=== PATIENT | female | born 1975 | race African-American/Black ===

== ENCOUNTER 2016-05-21 09:34 | Emergency (ER) | payer BC, OTHER ==
[2016-05-21 09:52] VITALS: BP 135/73; PULSE 70; TEMP 98.1; BMI 52.5
[2016-05-21] MEDS ORDERED: IBUPROFEN 600 MG TABLET (FP) PO ONE ×2 (10:34→10:36)
--- NOTE | 2016-05-21 10:42 | PDOC ---
History of Present Illness - General Chief Complaint: Edema Stated Complaint: SWOLLEN LT ANKLE Time Seen by Provider: 05/21/16 10:23 History Source: Patient Exam Limitations: No Limitations - History of Present Illness Initial Comments: 05/21/16 10:39 41 yr female states she has pain to her left lower leg after returning to work yesterday from a previous injury to the right leg. Pt admits to being mostly sedentary at home during recovery. Pt denies sob no chest pain. Pt has no medical history or allergies. Severity: Yes: mild Lower Extremity Pain Location: left: leg (calf) Lower Ext. Injury Location - Specific Injury Location Legs: left: pain, swelling Past History - Past Medical History Allergies/Adverse Reactions: Allergies Allergy/AdvReac Type Severity Reaction Status Date / Time No Known Drug Allergies Allergy Verified 05/21/16 09:52 Home Medications: Ambulatory Orders NK [No Known Home Medication] 01/03/15 Anemia: No Asthma: No Cancer: No Cardiac Disorders: Yes (MURMUR CHILD) CVA: No COPD: No (BROCHITIS) CHF: No Dementia: No Diabetes: No GI Disorders: No Disorders: No HTN: No Hypercholesterolemia: No Liver Disease: No Seizures: No Thyroid Disease: No Other medical history: obesity - Surgical History Abdominal Surgery: No Appendectomy: No Cardiac Surgery: No Cholecystectomy: No Lung Surgery: No Neurologic Surgery: No Orthopedic Surgery: Yes (CARPEL TUNNEL) - Psycho/Social/Smoking Cessation Hx Anxiety: No Suicidal Ideation: No Smoking History: Never smoked Have you smoked in the past 12 months: No Hx Alcohol Use: Yes (SOCIAL) Drug/Substance Use Hx: No Substance Use Type: None Hx Substance Use Treatment: No Review of Systems - Review of Systems Able to Perform ROS?: Yes Is the patient limited Honduran proficient: No Constitutional: No: Symptoms Reported HEENTM: No: Symptoms Reported Respiratory: No: Symptoms reported Cardiac (ROS): No: Symptoms Reported ABD/GI: No: Symptoms Reported : No: Symptoms Reported Musculoskeletal: Yes: See HPI *Physical Exam - Vital Signs Last Vital Signs Temp Pulse Resp BP Pulse Ox 98.1 F 70 20 135/73 100 05/21/16 09:49 05/21/16 09:49 05/21/16 09:49 05/21/16 09:49 05/21/16 09:49 - Physical Exam General Appearance: Yes: Nourished, Appropriately Dressed, Obese HEENT: positive: EOMI, HAILE Neck: negative: Tender Respiratory/Chest: positive: Lungs Clear, Normal Breath Sounds Cardiovascular: positive: Regular Rhythm, Regular Rate Gastrointestinal/Abdominal: positive: Normal Bowel Sounds, Soft Musculoskeletal: positive: Normal Inspection Extremity: positive: Normal Capillary Refill, Swelling (minimal swelling left lower leg to ankle non pitting , no bony tenderness), Calf Tenderness Integumentary: positive: Normal Color, Dry, Warm Neurologic: positive: Fully Oriented, Alert, Normal Mood/Affect, Normal Response , Motor Strength 07/04 ED Treatment Course - RADIOLOGY Radiology Studies Ordered: Category Date Time Status DUPLEX VASCUL US-1 LEG [US] Stat Ultrasound 05/21/16 10:34 Ordered - Medications Given in the ED: ED Medications Discontinued Medications Generic Name Dose Route Start Last Admin Trade Name Sky PRN Reason Stop Dose Admin Ibuprofen 600 mg 05/21/16 10:34 05/21/16 10:37 Motrin - PO 05/21/16 10:35 600 mg ONCE ONE Administration Medical Decision Making - Medical Decision Making 05/21/16 10:41 cc: left lower leg pain and swelling started yesterday 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 c/o swelling and tightness to the left leg no trauma no bony tenderness will r/o DVT left lower leg 05/21/16 11:52 *DC/Admit/Observation/Transfer Diagnosis at time of Disposition: Leg pain Qualifiers: Laterality: left Qualified Code(s): M79.605 - Pain in left leg - Discharge Dispostion Disposition: HOME Condition at time of disposition: Good - Patient Instructions Additional Instructions: elevate your leg at the end of the day can help with pain or swelling take motrin (advil, ibuprofen over the counter) for pain use the jennifer wrap while awake remove to sleep and bathe follow with your orthopedist or your primary care doctor for follow up
== END 2016-05-21 12:10 | disposition home or self-care (01) ==
LOC: JERFT 09:34
DX: M79.605 Pain in left leg (principal)
CPT/HCPCS: 93971-TC; 99281-25

== ENCOUNTER 2019-11-11 17:18 | Emergency (ER) | payer BC ==
[2019-11-11 17:35] VITALS: BMI 52.4
--- NOTE | 2019-11-11 20:25 | PDOC ---
History of Present Illness - General Chief Complaint: Weakness Stated Complaint: Weakness, incontinence, sent by PMD Time Seen by Provider: 11/11/19 19:21 History Source: Patient Exam Limitations: No Limitations - History of Present Illness Initial Comments: 11/11/19 20:18 CHIEF COMPLAINT: Lower back pain HISTORY OF PRESENT ILLNESS: 44-year-old female with multiple orthopedic history presents emergency department for evaluation of back pain radiating down both legs with frequent twitching and falls over the past 2 weeks. Patient reports he is recently been experiencing urinary incontinence and pins and needle sensation to her rectum. She denies any foot drop history of IV drug use or history of cancer. Patient was seen and evaluated at [facility] where her case was discussed with a neurologist and a recommendation was given to come to the emergency department for immediate in-person evaluation by a neurologist. REVIEW OF SYSTEMS: GENERAL: Afebrile, denies any weakness RESPIRATORY: No cough, wheezing, or hemoptysis. CARDIAC: No chest pain or shortness of breath MUSCULOSKELETAL: Pain to generalized lower back. No point tenderness. Pain worse on left compared to right. SKIN : No erythema, no bruising, no deformity. GI/: See HPI RECTAL: Denies any difficulty this A.m. NEUROLOGICAL: Denies any numbness or tingling. No neurosensory deficits. PHYSICAL EXAM: GENERAL: The patient is awake, alert, and fully oriented, in no acute distress. RESPIRATORY: Lungs clear bilaterally, no rhonchi wheezes or crackles CARDIAC: S1-S2 audible, no murmur rub or gallop MUSCULOSKELETAL: Pain to generalized lower back, nonradiating, no tingling or sensory deficit. Less than 2 second cap refill, +2 pedal pulses. No spinal point tenderness. No deficits to sensation or strength. Hyperreflexive in the left Achilles. Otherwise reflexes were unremarkable GI/: Abdomen soft, nontender, nondistended. No rebound tenderness. No masses palpable. RECTAL: Decreased rectal tone noted. Decreased sensation present to the right side of the rectum. Guaiac negative. SKIN: Warm, Dry, normal turgor, no erythema, no edema no bruising. 11/11/19 21:21 11/11/19 21:24 Past History - Medical History Allergies/Adverse Reactions: Allergies Allergy/AdvReac Type Severity Reaction Status Date / Time No Known Drug Allergies Allergy Verified 11/12/19 08:44 Home Medications: Ambulatory Orders Lidocaine 5% Patch [Lidoderm Patch -] 1 patch TP DAILY #30 patch 11/12/19 Methocarbamol [Robaxin -] 500 mg PO TID #21 tablet 11/12/19 Docusate Sodium [Colace -] 100 mg PO BID #14 capsule 11/17/19 Oxycodone HCl/Acetaminophen [Percocet 5-325 mg Tablet] 1 - 2 tab PO Q4H PRN #30 tablet MDD 8 11/17/19 Anemia: No Asthma: No Cancer: No Cardiac Disorders: Yes (MURMUR CHILD) CVA: No COPD: No (BROCHITIS) CHF: No Dementia: No Diabetes: No GI Disorders: No Disorders: No HTN: No Hypercholesterolemia: No Liver Disease: No Seizures: No Thyroid Disease: No Other medical history: obesity - Surgical History Abdominal Surgery: No Appendectomy: No Cardiac Surgery: No Cholecystectomy: No Lung Surgery: No Neurologic Surgery: No Orthopedic Surgery: Yes (CARPEL TUNNEL) - Reproductive History Is Patient Now?: No - Psycho-Social/Smoking History Smoking History: Never smoked Have you smoked in the past 12 months: No Information on smoking cessation initiated: Yes - Substance Abuse Hx (Audit-C & DAST Scrn) How often the patient has a drink containing alcohol: Never Score: In Men: 4 or > Positive; In Women: 3 or > Positive: 0 Screen Result (Pos requires Nsg. Audit-10AR): Negative In the last yr the pt used illegal drug/Rx for NonMed reason: No Score: Yes response is considered Positive: 0 Screen Result (Positive result requires Nsg. DAST-10): Negative *Physical Exam - Vital Signs Last Vital Signs Temp Pulse Resp BP Pulse Ox 98.2 F 76 19 110/59 L 100 11/11/19 17:22 11/11/19 17:22 11/11/19 17:22 11/11/19 17:22 11/11/19 17:22 ED Treatment Course - LABORATORY CBC & Chemistry Diagram: 11/11/19 22:00 11/11/19 22:00 Medical Decision Making - Medical Decision Making 11/11/19 20:22 A/P: 44-year-old female with lower back pain radiating to bilateral lower extremities with urinary incontinence and rectal paresthesias Given patient's exam there is an increased concern for cauda equina syndrome. MRI of the lumbar spine Urine Labs Case has been discussed with Dr. Betancur of neurosurgery who agrees with the current plan and will evaluate the patient in the emergency department after MRI has been completed. 11/11/19 20:59 11/11/19 23:07 Laboratory Tests 11/11/19 11/11/19 11/11/19 20:00 20:00 20:10 WBC RBC Hgb Hct MCV MCH MCHC RDW Plt Count MPV Absolute Neuts (auto) Neutrophils % Lymphocytes % Monocytes % Eosinophils % Basophils % Nucleated RBC % PT with INR INR Sodium Potassium Chloride Carbon Dioxide Anion Gap BUN Creatinine Est GFR (CKD-EPI)AfAm Est GFR (CKD-EPI)NonAf Random Glucose Calcium Total Bilirubin AST ALT Alkaline Phosphatase Total Protein Albumin Urine Color Yellow Urine Appearance Clear Urine pH 6.0 Ur Specific [place] 1.026 Urine Protein Negative Urine Glucose (UA) Negative Urine Ketones Trace H Urine Blood 2+ H Urine Nitrite Negative Urine Bilirubin Negative Urine Urobilinogen 1.0 Ur Leukocyte Esterase Negative Urine WBC (Auto) 30 Urine RBC (Auto) 15 Urine Casts (Auto) 1 U Epithel Cells (Auto) 30 Urine Bacteria (Auto) 361 Urine HCG, Qual Negative Stool Occult Blood Negative 11/11/19 11/11/19 11/11/19 22:00 22:00 22:00 WBC 10.5 H RBC 4.41 Hgb 12.2 Hct 37.4 MCV 84.9 MCH 27.8 MCHC 32.7 RDW 15.2 D Plt Count 319 D MPV 7.6 Absolute Neuts (auto) 6.8 Neutrophils % 65.1 Lymphocytes % 24.3 Monocytes % 7.1 Eosinophils % 2.6 D Basophils % 0.9 D Nucleated RBC % 0 PT with INR 12.20 INR 1.03 Sodium 138 Potassium 4.0 Chloride 106 Carbon Dioxide 28 Anion Gap 4 L BUN 12.9 Creatinine 0.8 Est GFR (CKD-EPI)AfAm 104.65 Est GFR (CKD-EPI)NonAf 90.30 Random Glucose 81 Calcium 8.7 Total Bilirubin 0.3 AST 16 ALT 22 Alkaline Phosphatase 100 Total Protein 8.0 Albumin 3.6 Urine Color Urine Appearance Urine pH Ur Specific [place] Urine Protein Urine Glucose (UA) Urine Ketones Urine Blood Urine Nitrite Urine Bilirubin Urine Urobilinogen Ur Leukocyte Esterase Urine WBC (Auto) Urine RBC (Auto) Urine Casts (Auto) U Epithel Cells (Auto) Urine Bacteria (Auto) Urine HCG, Qual Stool Occult Blood Laboratory testing noted above. Patient with continued pain morphine 4 mg IV push prescribed Neurosurgeon Dr. Betancur paged without response. Second call placed. 11/11/19 23:10 Case has been discussed with Dr. Betancur who has reviewed the MRI and believes lesion may be higher up than in the lumbar spine. Recommends thoracic and cervical spine MRIs prior to disposition given patient's age. 11/11/19 23:59 MRI is currently closed. CT of the cervical and thoracic spine without contrast ordered Patient has been signed out to Dr. santos for continued evaluation and disposition. Discharge - Discharge Information Problems reviewed: Yes Clinical Impression/Diagnosis: Muscle spasm Condition: Stable Disposition: HOME - Additional Discharge Information Prescriptions: Lidocaine 5% Patch [Lidoderm Patch -] 1 patch TP DAILY #30 patch Methocarbamol [Robaxin -] 500 mg PO TID #21 tablet - Follow up/Referral Referrals: Babak Ellison MD, FAANS [Staff Physician] - Abhijit Rich MD [Primary Care Provider] - - Patient Discharge Instructions Patient Printed Discharge Instructions: DI for Muscle Spasm Additional Instructions: You came to the emergency department for back pain. An MRI of your lower back did not show acute pathology. Prescriptions sent to your pharmacy. Take as instructed. You can also take [id number] tylenol for pain. Follow the instructions on the medication bottle. We have referred you to a neurologist for further evaluation. Also follow-up with your primary care physician in 5-7 days to discuss this ED visit and to further evaluate your back pain. Call and make appointments. Your workup is not complete until you do so. Immediate medical attention is required if you have back pain and : numbness in the genital or rectal area, loss of bowel or bladder control, difficulty with urination; fever, unexplained weight loss, or other signs of illness or infection. If you think you are having an emergency, call for emergency medical - Post Discharge Activity
[2019-11-11 20:49] LABS: EPI CELLS 30 /uL (0-25.1); HYALINE CASTS 1 /uL (0-3.1); URINE APPEARANCE CLEAR; URINE BACTERIA 361 /uL (0-1359); URINE BILIRUBIN NEGATIVE (NEGATIVE); URINE COLOR YELLOW; URINE GLUCOSE (UA) NEGATIVE (NEGATIVE); URINE KETONE TRACE (NEGATIVE); URINE LEUK ESTERASE NEGATIVE (NEGATIVE); URINE NITRITE NEGATIVE (NEGATIVE); URINE PROTEIN NEGATIVE (NEGATIVE); URINE RBC 15 /uL (0-23.9); URINE WBC 30 /uL (0-25.8)
[2019-11-11] MEDS ORDERED: morphine CARPU-JECT 4 MG/1 ML DISP.SYRIN IVPUSH ONE (22:10)
[2019-11-11 22:18] LABS: BASO % 0.9 % (0-2.0); EOS % 2.6 % (0-4.5); HEMATOCRIT 37.4 % (32.4-45.2); HEMOGLOBIN 12.2 GM/dL (10.7-15.3); LYMPH % 24.3 % (8-40); MCH 27.8 pg (25.7-33.7); MCHC 32.7 g/dl (32.0-36.0); MEAN CELL VOLUME 84.9 fl (80-96); MEAN PLT VOLUME 7.6 fl (7.5-11.1); MONO % 7.1 % (3.8-10.2); NEUT % 65.1 % (42.8-82.8); PLATELET COUNT 319 K/MM3 (134-434); RBC 4.41 M/mm3 (3.60-5.2); RDW 15.2 % (11.6-15.6); WHITE BLOOD COUNT 10.5 K/mm3 (4.0-10.0)
[2019-11-11] MEDS ORDERED: morphine SULFATE 4 MG/ML VIAL ONE (22:24)
[2019-11-11 22:25] LABS: INR 1.03 (0.83-1.09); PROTHROMBIN TIME (PATIENT) 12.2 SEC (9.7-13.0)
[2019-11-11 22:54] LABS: ALBUMIN 3.6 g/dl (3.4-5.0); BILIRUBIN,TOTAL 0.3 mg/dL (0.2-1); BLOOD UREA NITROGEN 12.9 mg/dL (7-18); CALCIUM 8.7 mg/dL (8.5-10.1); CREATININE 0.8 mg/dL (0.55-1.3)
[2019-11-11 23:42] VITALS: PULSE 65; TEMP 97.7
--- NOTE | 2019-11-12 01:32 | PDOC ---
*Physical Exam - Vital Signs Last Vital Signs Temp Pulse Resp BP Pulse Ox 97.7 F 65 16 112/37 L 99 11/11/19 23:40 11/11/19 23:40 11/11/19 23:40 11/11/19 23:40 11/11/19 23:40 ED Treatment Course - LABORATORY CBC & Chemistry Diagram: 11/11/19 22:00 11/11/19 22:00 - ADDITIONAL ORDERS Additional order review: Laboratory Results 11/11/19 11/11/19 11/11/19 22:00 22:00 20:10 PT with INR 12.20 INR 1.03 Sodium 138 Potassium 4.0 Chloride 106 Carbon Dioxide 28 Anion Gap 4 L BUN 12.9 Creatinine 0.8 Est GFR (CKD-EPI)AfAm 104.65 Est GFR (CKD-EPI)NonAf 90.30 Random Glucose 81 Calcium 8.7 Total Bilirubin 0.3 AST 16 ALT 22 Alkaline Phosphatase 100 Total Protein 8.0 Albumin 3.6 Urine Color Urine Appearance Urine pH Ur Specific [place] Urine Protein Urine Glucose (UA) Urine Ketones Urine Blood Urine Nitrite Urine Bilirubin Urine Urobilinogen Ur Leukocyte Esterase Urine WBC (Auto) Urine RBC (Auto) Urine Casts (Auto) U Epithel Cells (Auto) Urine Bacteria (Auto) Urine HCG, Qual Stool Occult Blood Negative 11/11/19 11/11/19 20:00 20:00 PT with INR INR Sodium Potassium Chloride Carbon Dioxide Anion Gap BUN Creatinine Est GFR (CKD-EPI)AfAm Est GFR (CKD-EPI)NonAf Random Glucose Calcium Total Bilirubin AST ALT Alkaline Phosphatase Total Protein Albumin Urine Color Yellow Urine Appearance Clear Urine pH 6.0 Ur Specific [place] 1.026 Urine Protein Negative Urine Glucose (UA) Negative Urine Ketones Trace H Urine Blood 2+ H Urine Nitrite Negative Urine Bilirubin Negative Urine Urobilinogen 1.0 Ur Leukocyte Esterase Negative Urine WBC (Auto) 30 Urine RBC (Auto) 15 Urine Casts (Auto) 1 U Epithel Cells (Auto) 30 Urine Bacteria (Auto) 361 Urine HCG, Qual Negative Stool Occult Blood 11/11/19 22:00 RBC 4.41 MCV 84.9 MCHC 32.7 RDW 15.2 D MPV 7.6 Neutrophils % 65.1 Lymphocytes % 24.3 Monocytes % 7.1 Eosinophils % 2.6 D Basophils % 0.9 D - Medications Given in the ED: ED Medications Discontinued Medications Generic Name Dose Route Start Last Admin Trade Name Sky PRN Reason Stop Dose Admin Morphine Sulfate 4 mg 11/11/19 22:10 11/11/19 22:28 Morphine Injection - IVPUSH 11/11/19 22:11 4 mg ONCE ONE Administration Medical Decision Making - Medical Decision Making Patient signed out by Dr. Peralta 44-year-old female with multiple orthopedic history presents emergency department for evaluation of back pain radiating down both legs with frequent twitching and falls over the past 2 weeks. MRI without cauda equina: "The vertebral bodies are of normal height and alignment. The marrow signal intensity is normal. The conus medullaris terminates at T12-L1. Normal signal intensity seen within the distal conus and cauda equina. The nerve roots course appropriately without evidence of clumping. Disc desiccation and small bilateral facet effusions at L4-L5 No disc bulges or disc protrusions at any level. The central canal and neural foramina are patent throughout IMPRESSION: 1. No acute findings" CT thoracic/lumbar unremarkable as reported by imaging reception interviewer: "CT CERVICAL SPINE: Straightening of the normal physiological of the cervical spine that is either due to muscle spasm or patient positioning. No fractures, subluxations, or jumped facets The disc spaces are normal Small central disc protrusion at C3-C4 No central canal or neural foraminal stenosis at any level CT THORACIC SPINE: No fractures or subluxations The paravertebral soft tissues and disc spaces are normal Mild thoracic spondylosis The visualized lungs are clear. IMPRESSION: 1. No acute cervical or thoracic spine findings" Patient able to ambulate with steady gait Prescriptions sent to pharmacy Neurosurgery referral Return precautions Stable for discharge 11/12/19 01:30 Discharge - Discharge Information Problems reviewed: Yes Clinical Impression/Diagnosis: Muscle spasm Condition: Stable Disposition: HOME - Additional Discharge Information Prescriptions: Lidocaine 5% Patch [Lidoderm Patch -] 1 patch TP DAILY #30 patch Methocarbamol [Robaxin -] 500 mg PO TID #21 tablet - Follow up/Referral Referrals: Abhijit Rich MD [Primary Care Provider] - Babak Ellison MD, FAANS [Staff Physician] - - Patient Discharge Instructions Patient Printed Discharge Instructions: DI for Muscle Spasm Additional Instructions: You came to the emergency department for back pain. An MRI of your lower back did not show acute pathology. Prescriptions sent to your pharmacy. Take as instructed. You can also take [id number] tylenol for pain. Follow the instructions on the medication bottle. We have referred you to a neurologist for further evaluation. Also follow-up with your primary care physician in 5-7 days to discuss this ED visit and to further evaluate your back pain. Call and make appointments. Your workup is not complete until you do so. Immediate medical attention is required if you have back pain and : numbness in the genital or rectal area, loss of bowel or bladder control, difficulty with urination; fever, unexplained weight loss, or other signs of illness or infection. If you think you are having an emergency, call for emergency medical - Post Discharge Activity
--- NOTE | 2019-11-12 01:34 | PDOC ---
*Physical Exam - Vital Signs Last Vital Signs Temp Pulse Resp BP Pulse Ox 97.7 F 65 16 112/37 L 99 11/11/19 23:40 11/11/19 23:40 11/11/19 23:40 11/11/19 23:40 11/11/19 23:40 ED Treatment Course - LABORATORY CBC & Chemistry Diagram: 11/11/19 22:00 11/11/19 22:00 - ADDITIONAL ORDERS Additional order review: Laboratory Results 11/11/19 11/11/19 11/11/19 22:00 22:00 20:10 PT with INR 12.20 INR 1.03 Sodium 138 Potassium 4.0 Chloride 106 Carbon Dioxide 28 Anion Gap 4 L BUN 12.9 Creatinine 0.8 Est GFR (CKD-EPI)AfAm 104.65 Est GFR (CKD-EPI)NonAf 90.30 Random Glucose 81 Calcium 8.7 Total Bilirubin 0.3 AST 16 ALT 22 Alkaline Phosphatase 100 Total Protein 8.0 Albumin 3.6 Urine Color Urine Appearance Urine pH Ur Specific [place] Urine Protein Urine Glucose (UA) Urine Ketones Urine Blood Urine Nitrite Urine Bilirubin Urine Urobilinogen Ur Leukocyte Esterase Urine WBC (Auto) Urine RBC (Auto) Urine Casts (Auto) U Epithel Cells (Auto) Urine Bacteria (Auto) Urine HCG, Qual Stool Occult Blood Negative 11/11/19 11/11/19 20:00 20:00 PT with INR INR Sodium Potassium Chloride Carbon Dioxide Anion Gap BUN Creatinine Est GFR (CKD-EPI)AfAm Est GFR (CKD-EPI)NonAf Random Glucose Calcium Total Bilirubin AST ALT Alkaline Phosphatase Total Protein Albumin Urine Color Yellow Urine Appearance Clear Urine pH 6.0 Ur Specific [place] 1.026 Urine Protein Negative Urine Glucose (UA) Negative Urine Ketones Trace H Urine Blood 2+ H Urine Nitrite Negative Urine Bilirubin Negative Urine Urobilinogen 1.0 Ur Leukocyte Esterase Negative Urine WBC (Auto) 30 Urine RBC (Auto) 15 Urine Casts (Auto) 1 U Epithel Cells (Auto) 30 Urine Bacteria (Auto) 361 Urine HCG, Qual Negative Stool Occult Blood 11/11/19 22:00 RBC 4.41 MCV 84.9 MCHC 32.7 RDW 15.2 D MPV 7.6 Neutrophils % 65.1 Lymphocytes % 24.3 Monocytes % 7.1 Eosinophils % 2.6 D Basophils % 0.9 D - Medications Given in the ED: ED Medications Discontinued Medications Generic Name Dose Route Start Last Admin Trade Name Sky PRN Reason Stop Dose Admin Morphine Sulfate 4 mg 11/11/19 22:10 11/11/19 22:28 Morphine Injection - IVPUSH 11/11/19 22:11 4 mg ONCE ONE Administration Medical Decision Making - Medical Decision Making 11/12/19 01:33 Patient Name: SHIN GARDUNO THIS IS A PRELIMINARY REPORT DATE OF SERVICE: 2019-11-12 00:24:47 IMAGES: [id number] EXAM: CT CERVICAL SPINE WITHOUT CONTRAST AND CT THORACIC SPINE WITHOUT CONTRAST HISTORY: Urinary incontinence COMPARISON: None. FINDINGS: CT CERVICAL SPINE: Straightening of the normal physiological of the cervical spine that is either due to muscle spasm or patient positioning. CONFIDENTIALITY NOTICE: This information is intended only for the use of the recipient(s) named above. If you are not the intended recipient, or a person responsible for delivering it to the intended recipient, you are hereby notified that any disclosure, copying, distribution or use of any of the information contained in or attached to this transmission is STRICTLY PROHIBITED. If you have received this transmission in error, please immediately notify [employer] and destroy the original transmission and its attachments without saving them in any manner Please call 22/09 Support: [phone] ([phone]) with questions. Patient Information: : 1975 Order Type: Preliminary Name: LAUREEN CRAWFORD Sex: F Study Description: CT CERVICAL SPINE / CT THORACIC SPINE Modality: CT Location: [facility] [place] Referring Physician: LUIS HERRERA No fractures, subluxations, or jumped facets The disc spaces are normal Small central disc protrusion at C3-C4 No central canal or neural foraminal stenosis at any level CT THORACIC SPINE: No fractures or subluxations The paravertebral soft tissues and disc spaces are normal Mild thoracic spondylosis The visualized lungs are clear. IMPRESSION: 1. No acute cervical or thoracic spine findings END OF IMPRESSION 11/12/19 02:26 EXAM: LUMBAR SPINE MRI W/O CONTRAST HISTORY: Back pain COMPARISON: None. FINDINGS: The vertebral bodies are of normal height and alignment. The marrow signal intensity is normal. The conus medullaris terminates at T12-L1. Normal signal intensity seen within the distal conus and cauda equina. The nerve roots course appropriately without evidence of clumping. Disc desiccation and small bilateral facet effusions at L4-L5 No disc bulges or disc protrusions at any level. The central canal and neural foramina are patent throughout IMPRESSION: 1. No acute findings Neurosurg paged; not responding. Pt stable for d/c home. She feels better. Follow with PMD Discharge - Discharge Information Problems reviewed: Yes Clinical Impression/Diagnosis: Muscle spasm Condition: Stable Disposition: HOME - Additional Discharge Information Prescriptions: Lidocaine 5% Patch [Lidoderm Patch -] 1 patch TP DAILY #30 patch Methocarbamol [Robaxin -] 500 mg PO TID #21 tablet - Follow up/Referral Referrals: Babak Ellison MD, FAANS [Staff Physician] - Abhijit Rich MD [Primary Care Provider] - - Patient Discharge Instructions Patient Printed Discharge Instructions: DI for Muscle Spasm Additional Instructions: You came to the emergency department for back pain. An MRI of your lower back did not show acute pathology. Prescriptions sent to your pharmacy. Take as instructed. You can also take [id number] tylenol for pain. Follow the instructions on the medication bottle. We have referred you to a neurologist for further evaluation. Also follow-up with your primary care physician in 5-7 days to discuss this ED visit and to further evaluate your back pain. Call and make appointments. Your workup is not complete until you do so. Immediate medical attention is required if you have back pain and : numbness in the genital or rectal area, loss of bowel or bladder control, difficulty with urination; fever, unexplained weight loss, or other signs of illness or infec tion. If you think you are having an emergency, call for emergency medical - Post Discharge Activity
[2019-11-12 02:21] VITALS: BP 115/54
== END 2019-11-12 02:32 | disposition home or self-care (01) ==
LOC: JER 17:18
PROC: 3E033NZ Introduction of Analgesics, Hypnotics, Sedatives into Peripheral Vein, Percutaneous Approach (ICD-10-PCS; principal; 2019-11-11)
DX: M62.838 Other muscle spasm (principal)
CPT/HCPCS: 36415; 72125-TC; 72128-TC; 72148-TC; 80053; 81003; 82272; 84703; 85025; 85610; 87086; 99285-25

== ENCOUNTER 2019-11-12 08:42 | Inpatient (IN) | payer BC ==
[2019-11-12 08:49] VITALS: BMI 43.4
--- NOTE | 2019-11-12 09:47 | PDOC ---
History of Present Illness - General Chief Complaint: Revisit,Radiology Variance Stated Complaint: BACK PAIN Time Seen by Provider: 11/12/19 09:34 - History of Present Illness Initial Comments: 11/12/19 09:47 44-year-old female with presents emergency department after being discharged earlier today because Dr. Ellison (neurosurg) read an abnormality on the patient's back imaging. She has no new complaints. Reports left buttock pain, left groin pain, and left quad pain after a misplaced step two weeks prior. Also reports urinary incontinence. PMH/PSH/Meds/Allergies: as per chart. ROS GENERAL/CONSTITUTIONAL: No fever or chills. No weakness. HEAD, EYES, EARS, NOSE AND THROAT: No change in vision. No ear pain or discharge. No sore throat. CARDIOVASCULAR: No chest pain or shortness of breath RESPIRATORY: No cough, wheezing, or hemoptysis. GASTROINTESTINAL: No nausea, vomiting, diarrhea or constipation. GENITOURINARY: No dysuria, frequency, or change in urination. MUSCULOSKELETAL: left buttock, groin, and thigh pain SKIN: No rash NEUROLOGIC: No headache, vertigo, loss of consciousness, or change in strength/sensation. ENDOCRINE: No increased thirst. No abnormal weight change HEMATOLOGIC/LYMPHATIC: No anemia, easy bleeding, or history of blood clots. ALLERGIC/IMMUNOLOGIC: No hives or skin allergy. PE GENERAL: Awake, alert, and fully oriented, in no acute distress HEAD: No signs of trauma, normocephalic, atraumatic EYES: PERRLA, EOMI, sclera anicteric, conjunctiva clear ENT: Auricles normal inspection, hearing grossly normal, nares patent, oropharynx clear without exudates. Moist mucosa NECK: Normal ROM, supple, no lymphadenopathy, JVD, or masses LUNGS: No distress, speaks full sentences, clear to auscultation bilaterally HEART: Regular rate and rhythm, normal S1 and S2, no murmurs, rubs or gallops, peripheral pulses normal and equal bilaterally. ABDOMEN: Soft, nontender, normoactive bowel sounds. No guarding, no rebound. No masses EXTREMITIES : Normal inspection, Normal range of motion, no edema. No clubbing or cyanosis. Left buttock and thigh tender to palpation. No saddle anethesia. NEUROLOGICAL: Normal speech, normal gait, no focal sensorimotor deficits SKIN: Warm, Dry, normal turgor, no rashes or lesions noted Vital Signs Temp Pulse Resp BP Pulse Ox 75 16 106/41 L 100 11/12/19 15:42 11/12/19 15:42 11/12/19 15:42 11/12/19 15:42 44-year-old female with presents emergency department after being discharged earlier today because Dr. Ellison (neurosurg) read an abnormality on the patient's back imaging. No evidence of acute chord compression, and normal neuro exam. I spoke with Dr. Ellison who was concerned about a possible meningioma on the cervical or thoracic spine, and he recommended MRI cervical and thoracic spine without contrast. He was also concerned about an inflammatory process on the lumbar spine, and he recommended an MRI lumbar spine with contrast. Will get those studies at 3pm. Ibuprofen and naproxen for back pain. 11/12/19 16:09 Patient got MRI lumbar spine, but there was an issue obtaining MRI cervical and thoracic spine 11/12/19 17:[address] Ellison. He recommended admission for the cervical/thoracic MRI and workup of urinary incontinence. 11/12/19 18:[address] Michaels who admitted the patient. Past History - Medical History Allergies/Adverse Reactions: Allergies Allergy/AdvReac Type Severity Reaction Status Date / Time No Known Drug Allergies Allergy Verified 11/12/19 08:44 Home Medications: Ambulatory Orders Lidocaine 5% Patch [Lidoderm Patch -] 1 patch TP DAILY #30 patch 11/12/19 Methocarbamol [Robaxin -] 500 mg PO TID #21 tablet 11/12/19 Anemia: No Asthma: No Cancer: No Cardiac Disorders: Yes (MURMUR CHILD) CVA: No COPD: No (BROCHITIS) CHF: No Dementia: No Diabetes: No GI Disorders: No Disorders: No HTN: No Hypercholesterolemia: No Liver Disease: No Seizures: No Thyroid Disease: No - Surgical History Abdominal Surgery: No Appendectomy: No Cardiac Surgery: No Cholecystectomy: No Lung Surgery: No Neurologic Surgery: No Orthopedic Surgery: Yes (CARPEL TUNNEL) - Reproductive History Is Patient Now?: No - Psycho-Social/Smoking History Smoking History: Never smoked Have you smoked in the past 12 months: No - Substance Abuse Hx (Audit-C & DAST Scrn) How often the patient has a drink containing alcohol: Never Score: In Men: 4 or > Positive; In Women: 3 or > Positive: 0 Screen Result (Pos requires Nsg. Audit-10AR): Negative In the last yr the pt used illegal drug/Rx for NonMed reason: No Score: Yes response is considered Positive: 0 Screen Result (Positive result requires Nsg. DAST-10): Negative *Physical Exam - Vital Signs Last Vital Signs Temp Pulse Resp BP Pulse Ox 64 16 116/63 98 11/12/19 08:45 11/12/19 08:45 11/12/19 08:45 11/12/19 08:45 Discharge - Discharge Information Problems reviewed: Yes Clinical Impression/Diagnosis: Urinary incontinence Qualifiers: Urinary Incontinence type: unspecified incontinence Qualified Code(s): R32 - Unspecified urinary incontinence Back pain Qualifiers: Back pain location: low back pain Chronicity: acute Back pain laterality: left Sciatica presence: without sciatica Qualified Code(s): M54.5 - Low back pain - Follow up/Referral Referrals: Abhijit Rich MD [Staff Physician] - - Patient Discharge Instructions - Post Discharge Activity
[2019-11-12] MEDS ORDERED: IBUPROFEN 600 MG TABLET (FP) PO ONE ×2 (14:05→14:31)
[2019-11-12] MEDS ORDERED: LIDOCAINE 5% TOPICAL PATCH TP ONE (14:05)
--- NOTE | 2019-11-12 14:19 | PDOC ---
Documentation entered by Adore Che SCRIBE, acting as scribe for Damion Catherine MD. Damion Catherine MD: This documentation has been prepared by the scribe, Adore Che SCRIBE, under my direction and personally reviewed by me in its entirety. I confirm that the documentation accurately reflects all work, treatment, procedures, and medical decision making performed by me. Attending Attestation - Resident Resident Name: GlenisAnibal - ED Attending Attestation I have performed the following: I have examined & evaluated the patient, The case was reviewed & discussed with the resident, I agree w/resident's findings & plan, Exceptions are as noted - HPI HPI: 11/12/19 09:44 Patient is a 44 year old female with a significant past medical history of multiple orthopedic history who presents to the ED, after being discharged from here a few hours ago, with abnormalities in back imaging. The neurologist read the patient's imaging and called the ED to tell the patient to come back for further workup. Pt hauser been several weeks of left buttock pain rating down the lateral and anterior aspect of her left leg. Patient denies any recent injuries, traumas, falls. Patient also does have a complaint urinary incontinence the past few days where urine would leak down her leg. Pt denies any back pain, neck pain, headache, fever/chills, n/v, focal weakness. Patient endorses: left buttock pain, left groin pain, and left quad pain Patient denies: any new complaints, weakness, fever, any urinary issues, or any other related symptoms. Allergies: NKDA - Physicial Exam PE: 11/12/19 14:19 PE GENERAL: Awake, alert, and fully oriented, in no acute distress BACK:no focal midline back tenderness, EXTREMITIES : Normal inspection, Normal range of motion, no edema. No clubbing or cyanosis. mild discomfort to lateral aspect of L hip/leg. sesnation intact on LE NEUROLOGICAL: Normal speech, normal gait, no focal sensorimotor deficits SKIN: Warm, Dry, normal turgor, no rashes or lesions noted - Medical Decision Making 11/12/19 14:19 Neg MRI For lumbar cord compression dw neurosurg - requeste MRI for cspine/thoracic spine 11/12/19 16:[address] King bedside evaluating the patient dispo pending signed out to evening team Discharge - Discharge Information Problems reviewed: Yes Clinical Impression/Diagnosis: Urinary incontinence Qualifiers: Urinary Incontinence type: unspecified incontinence Qualified Code(s): R32 - Unspecified urinary incontinence Back pain Qualifiers: Back pain location: low back pain Chronicity: acute Back pain laterality: left Sciatica presence: without sciatica Qualified Code(s): M54.5 - Low back pain - Follow up/Referral - Patient Discharge Instructions - Post Discharge Activity
[2019-11-12] MEDS ORDERED: LIDOCAINE 5% TOPICAL PATCH ONE (14:31)
[2019-11-12] MEDS ORDERED: LIDOCAINE PATCH REMOVAL MC SCH (22:00)
[2019-11-12] MEDS ORDERED: KETOROLAC TROMETHAMINE 30 MG/1 ML VIAL IVPUSH PRN (22:39)
[2019-11-12] MEDS: LIDOCAINE PATCH REMOVAL MC SCH (23:16)
[2019-11-13 07:00] LABS: BASO % 0.3 % (0-2.0); EOS % 2.3 % (0-4.5); HEMATOCRIT 35.3 % (32.4-45.2); HEMOGLOBIN 11.6 GM/dL (10.7-15.3); LYMPH % 30.7 % (8-40); MCH 27.5 pg (25.7-33.7); MCHC 32.7 g/dl (32.0-36.0); MEAN CELL VOLUME 83.9 fl (80-96); MEAN PLT VOLUME 7.6 fl (7.5-11.1); MONO % 9.5 % (3.8-10.2); NEUT % 57.2 % (42.8-82.8); PLATELET COUNT 307 K/MM3 (134-434); RBC 4.21 M/mm3 (3.60-5.2); RDW 15.3 % (11.6-15.6); WHITE BLOOD COUNT 7.4 K/mm3 (4.0-10.0)
[2019-11-13 07:23] LABS: ALBUMIN 3.2 g/dl (3.4-5.0); BILIRUBIN,TOTAL 0.5 mg/dL (0.2-1); CALCIUM 8.4 mg/dL (8.5-10.1); CREATININE 0.6 mg/dL (0.55-1.3); TOT PROT 7.4 g/dl (6.4-8.2)
[2019-11-13] MEDS ORDERED: KETOROLAC TROMETHAMINE 30 MG/1 ML VIAL ONE (07:37)
[2019-11-13] MEDS ORDERED: LORazepam 2 MG/ML SDV VIAL ONE (08:26)
[2019-11-13] MEDS: HEPARIN NA (PORCINE) 5,000 UNITS/ML 1ML VIAL SQ SCH ×2 (11:05→21:17)
[2019-11-13] MEDS: LIDOCAINE 5% TOPICAL PATCH TP SCH (11:05)
[2019-11-13] MEDS ORDERED: HEPARIN NA (PORCINE) 5,000 UNITS/ML 1ML VIAL ONE (11:06)
[2019-11-13] MEDS ORDERED: LIDOCAINE 5% TOPICAL PATCH ONE (11:06)
--- NOTE | 2019-11-13 16:33 | HP ---
Admitting History and Physical - Admission History of Present Illness: Patient is a 44 year old female w/ morid obesity who presents to the ED, after being discharged from ER a few hours prior with similiar complaints. Pt has been having a few weeks of lower back/hip pain. Pain radiates down LLE w some numbness and tingling of LLE. Pt also complains of numbness/tingling of B/L hands. Pt states that at times it feels as if her legs just give out on her and she has fallen a few times. Pt however developed urinary incontinence in the past few days. - Past Medical History Pulmonary: Yes: Asthma ...LMP: 11/09/19 ...: No - Smoking History Smoking history: Never smoked Have you smoked in the past 12 months: No - Alcohol/Substance Use Hx Alcohol Use: Yes (SOCIAL) Home Medications - Allergies Allergies/Adverse Reactions: Allergies Allergy/AdvReac Type Severity Reaction Status Date / Time No Known Drug Allergies Allergy Verified 11/12/19 08:44 - Home Medications Home Medications: Ambulatory Orders Lidocaine 5% Patch [Lidoderm Patch -] 1 patch TP DAILY #30 patch 11/12/19 Methocarbamol [Robaxin -] 500 mg PO TID #21 tablet 11/12/19 Family Medical History Family History: Unremarkable Review of Systems - Review of Systems Constitutional: reports: Weakness Eyes: reports: No Symptoms HENT: reports: No Symptoms Neck: reports: No Symptoms Cardiovascular: reports: No Symptoms Respiratory: reports: No Symptoms Gastrointestinal: reports: No Symptoms Genitourinary: reports: Incontinence Physical Examination Vital Signs: Vital Signs Temperature 98.4 F 11/13/19 14:00 Pulse Rate 86 11/13/19 14:00 Respiratory Rate 11/13/19 14:00 Blood Pressure 137/78 11/13/19 14:00 O2 Sat by Pulse Oximetry (%) 100 11/13/19 14:00 Constitutional: Yes: Well Nourished, Obese Eyes: Yes: WNL HENT: Yes: WNL Neck: Yes: WNL, Supple Cardiovascular: Yes: WNL, Regular Rate and Rhythm Respiratory: Yes: WNL, Regular, CTA Bilaterally Gastrointestinal: Yes: WNL, Normal Bowel Sounds, Soft, Abdomen, Obese Musculoskeletal: Yes: WNL Extremities: Yes: WNL Edema: No Neurological: Yes: WNL, Alert, Oriented ...Motor Strength: WNL Labs: CBC, BMP 11/13/19 05:54 11/13/19 05:54 Problem List - Problems (1) Disc herniation Assessment/Plan: C5-C6 disc herniation on MRI C-spine Spoke to pt w/ NSG at length about probable surgery as option Pt to undergo surgery possibly in am as per NSG NPO after midnight Monitor labs No medical contraindication for surgery at this time Code(s): [id number] - (2) Urinary incontinence Code(s): R32 - UNSPECIFIED URINARY INCONTINENCE Qualifiers: Urinary Incontinence type: unspecified incontinence Qualified Code(s): R32 - Unspecified urinary incontinence (3) Asthma Assessment/Plan: Stable Duoneb prn Code(s): J45.909 - UNSPECIFIED ASTHMA, UNCOMPLICATED (4) Morbid obesity Code(s): E66.01 - MORBID (SEVERE) OBESITY DUE TO EXCESS CALORIES
[2019-11-13] MEDS: LIDOCAINE PATCH REMOVAL MC SCH (21:18)
[2019-11-14] MEDS: HEPARIN NA (PORCINE) 5,000 UNITS/ML 1ML VIAL SQ SCH ×3 (09:30→22:18)
[2019-11-14] MEDS: LIDOCAINE 5% TOPICAL PATCH TP SCH (09:30)
[2019-11-14 10:30] LABS: PROTHROMBIN TIME (PATIENT) 11.8 SEC (9.7-13.0)
[2019-11-14 10:32] LABS: ACTIVATED PTT 32.7 SECONDS (25.2-36.5)
[2019-11-14] MEDS ORDERED: GENTAMICIN SO4 80 MG/2 ML VIAL ONE (10:35)
[2019-11-14] MEDS ORDERED: LIDOCAINE 1%/EPI 1:100000 (20 ML MULTI DOSE VIAL) ONE ×2 (10:35→11:06)
[2019-11-14] MEDS ORDERED: THROMBIN (BOVINE) 5,000 UNIT VIAL TP ONE ×2 (10:36→11:15)
[2019-11-14] MEDS ORDERED: LIDOCAINE HCL/PF 2% SDV 5ML VIAL ONE (10:49)
[2019-11-14] MEDS ORDERED: MIDAZOLAM HCL 2 MG/2 ML SINGLE DOSE VIAL ONE (10:49)
[2019-11-14] MEDS ORDERED: PROPOFOL 20 ML ONE ×2 (10:49)
[2019-11-14] MEDS ORDERED: ceFAZolin SODIUM 1 GM VIAL ONE ×2 (10:49→17:52)
[2019-11-14] MEDS ORDERED: VANCOMYCIN 1,000 MG VIAL (RESTRICTED TO ID ONLY) ONE (10:49)
[2019-11-14] MEDS ORDERED: fentaNYL CITRATE 250 MCG/5 ML VIAL ONE (10:49)
--- NOTE | 2019-11-14 10:57 | EKG ---
Test Reason : Blood Pressure : / mmHG Vent. Rate : 068 BPM Atrial Rate : 068 BPM P-R Int : 152 ms QRS Dur : 084 ms QT Int : 380 ms P-R-T Axes : 069 064 053 degrees QTc Int : 404 ms NORMAL SINUS RHYTHM NORMAL ECG NO PREVIOUS ECGS AVAILABLE Confirmed by JENNI COHN MD ([id number]) on 11/14/2019 10:56:36 AM Referred By: Confirmed By:JENNI COHN MD
[2019-11-14] MEDS ORDERED: BUPIVACAINE LIPOSOME/PF (EXPAREL) 266 MG/20 ML VIAL ONE (11:06)
[2019-11-14] MEDS ORDERED: ceFAZolin SODIUM 1 GM VIAL IVPB ONE (11:54)
[2019-11-14] MEDS ORDERED: VANCOMYCIN 1,000 MG VIAL (RESTRICTED TO ID ONLY) IVPB ONE (11:56)
[2019-11-14] MEDS ORDERED: DEXAMETHASONE SOD PHOSPHATE 4 MG/1 ML VIAL ONE (12:15)
[2019-11-14] MEDS ORDERED: LIDOCAINE 1%/EPI 1:100000 (20 ML MULTI DOSE VIAL) IJ ONE (12:16)
[2019-11-14] MEDS ORDERED: BACITRACIN 50,000 UNITS VIAL TP ONE (12:16)
[2019-11-14] MEDS ORDERED: GENTAMICIN SO4 80 MG/2 ML VIAL IVPB ONE (12:16)
[2019-11-14] MEDS ORDERED: GLYCOPYRROLATE 0.2 MG/1 ML VIAL ONE (12:52)
[2019-11-14] MEDS ORDERED: NEOSTIGMINE METHYLSULFATE 0.5 MG/ML - 10 ML MDV ONE (12:52)
[2019-11-14] MEDS ORDERED: diphenhydrAMINE HCL 25 MG CAPSULE (FP) PO PRN (13:35)
[2019-11-14] MEDS ORDERED: ONDANSETRON 4 MG/2 ML VIAL IVPUSH PRN (13:35)
[2019-11-14] MEDS ORDERED: oxyCODONE HCL 5 MG TABLET PO PRN (13:35)
[2019-11-14] MEDS ORDERED: IBUPROFEN 800 MG/8 ML IJ IVPB PRN (13:43)
[2019-11-14] MEDS ORDERED: LACTATED RINGERS SOLUTION 1,000 ML/1,000 ML INFUS.BAG IV SCH (13:45)
[2019-11-14] MEDS: DOCUSATE SODIUM 100 MG CAPSULE (FP) PO SCH ×2 (17:24→22:18)
--- NOTE | 2019-11-14 17:28 | OP ---
Operative Note - Note: Operative Date: 11/14/19 Pre-Operative Diagnosis: Cervical spondylosis Operation: C5-6 anterior cervical decompression and fusion Surgeon: Babak Ellison Tea Taster: Crow [place] Anesthesiologist/IDENTIFICATION TECHNICIAN: Florence Sargent Anesthesia: General Estimated Blood Loss (mls): 150 Operative Report Dictated: Yes
[2019-11-14] MEDS ORDERED: DEXTROSE 5%-WATER - 50 ML IVPB ONE (17:52)
[2019-11-14] MEDS: CEFAZOLIN 1 GM in DEXTROSE 5%-WATER - 50 ML IVPB SCH ×2 (18:20→18:23)
--- NOTE | 2019-11-14 21:01 | PN ---
Progress Note, Physician History of Present Illness: Pt tolerated surgery - Current Medication List Current Medications: Active Medications Diphenhydramine HCl (Benadryl -) 25 mg PO Q6H PRN PRN Reason: FOR ITCHING Last Admin: 11/14/19 15:40 Dose: 25 mg Documented by: Docusate Sodium (Colace -) 100 mg PO TID [facility] Last Admin: 11/14/19 17:24 Dose: Not Given Documented by: Ferrous Sulfate (Feosol -) 325 mg PO DAILY [facility] Folic Acid (Folic Acid -) 1 mg PO DAILY [facility] Heparin Sodium (Porcine) (Heparin -) 5,000 unit SQ TID [facility] Last Admin: 11/14/19 17:27 Dose: Not Given Documented by: Lactated Ringer's (Lactated Ringers Solution) 1,000 ml in 1,000 mls @ 125 mls/hr IV ASDIR [facility] Last Admin: 11/14/19 15:00 Dose: 300 mls Documented by: Cefazolin Sodium 1 gm/ (Dextrose) 50 mls @ 100 mls/hr IVPB Q8H-IV [facility] Stop: 11/15/19 17:59 Last Admin: 11/14/19 18:23 Dose: 100 mls/hr Documented by: Ibuprofen (Caldolor Injection -) 800 mg IVPB Q6H PRN PRN Reason: Pain - Pacu Lidocaine (Lidoderm Patch -) 1 patch TP DAILY [facility] Miscellaneous (Lidoderm Patch Removal) 1 each MC DAILY@2200 [facility] Morphine Sulfate (Morphine Sulfate) 4 mg IVPUSH Q4H PRN PRN Reason: PAIN LEVEL 7 - 10 Ondansetron HCl (Zofran Injection) 4 mg IVPUSH Q6H PRN PRN Reason: NAUSEA Oxycodone HCl (Roxicodone -) 5 mg PO Q4H PRN PRN Reason: PAIN LEVEL 1-5 Oxycodone HCl (Roxicodone -) 10 mg PO Q4H PRN PRN Reason: PAIN LEVEL 6-10 - Objective Vital Signs: Vital Signs Temperature 97.8 F 11/14/19 19:06 Pulse Rate 65 11/14/19 19:06 Respiratory Rate 18 11/14/19 19:06 Blood Pressure 115/71 11/14/19 19:06 O2 Sat by Pulse Oximetry (%) 99 11/14/19 19:06 Neck: Yes: Other ((+) C-collar (+) drainage tube w/ serous drainage) Respiratory: Yes: WNL, Regular Gastrointestinal: Yes: WNL, Normal Bowel Sounds, Soft, Abdomen, Obese Labs: CBC, BMP 11/13/19 05:54 11/13/19 05:54 INR, PTT INR 1.00 (0.83-1.09) 11/14/19 09:15 Problem List - Problems (1) Disc herniation Assessment/Plan: C5-C6 disc herniation on MRI C-spine S/P C5-C6 decompression and fusion Cont Cervical collar As per NSG Code(s): [id number] - (2) Urinary incontinence Code(s): R32 - UNSPECIFIED URINARY INCONTINENCE Qualifiers: Urinary Incontinence type: unspecified incontinence Qualified Code(s): R32 - Unspecified urinary incontinence (3) Asthma Assessment/Plan: Stable Duoneb prn Code(s): J45.909 - UNSPECIFIED ASTHMA, UNCOMPLICATED (4) Morbid obesity Code(s): E66.01 - MORBID (SEVERE) OBESITY DUE TO EXCESS CALORIES
[2019-11-14] MEDS ORDERED: LIDOCAINE PATCH REMOVAL MC SCH (22:00)
[2019-11-14] MEDS: LIDOCAINE PATCH REMOVAL MC SCH (22:21)
[2019-11-14] MEDS: morphine SULFATE 4 MG/ML VIAL IVPUSH PRN (23:58)
[2019-11-15] MEDS ORDERED: ceFAZolin SODIUM 1 GM VIAL ONE ×2 (01:04→09:41)
[2019-11-15] MEDS ORDERED: DEXTROSE 5%-WATER - 50 ML IVPB ONE ×2 (01:05→09:41)
[2019-11-15] MEDS: CEFAZOLIN 1 GM in DEXTROSE 5%-WATER - 50 ML IVPB SCH ×2 (01:10→09:57)
[2019-11-15] MEDS: oxyCODONE HCL 5 MG TABLET PO PRN ×4 (02:50→22:34)
[2019-11-15] MEDS: HEPARIN NA (PORCINE) 5,000 UNITS/ML 1ML VIAL SQ SCH ×3 (06:21→22:35)
[2019-11-15] MEDS: DOCUSATE SODIUM 100 MG CAPSULE (FP) PO SCH ×3 (06:22→22:35)
[2019-11-15 08:15] LABS: BASO % 0.1 % (0-2.0); HEMATOCRIT 35.2 % (32.4-45.2); HEMOGLOBIN 11.5 GM/dL (10.7-15.3); LYMPH % 11.9 % (8-40); MCH 27.4 pg (25.7-33.7); MCHC 32.7 g/dl (32.0-36.0); MEAN CELL VOLUME 83.9 fl (80-96); MEAN PLT VOLUME 7.6 fl (7.5-11.1); PLATELET COUNT 302 K/MM3 (134-434); RDW 15.4 % (11.6-15.6); WHITE BLOOD COUNT 15.1 K/mm3 (4.0-10.0)
[2019-11-15 08:34] LABS: ALBUMIN 3.1 g/dl (3.4-5.0); BILIRUBIN,TOTAL 0.3 mg/dL (0.2-1); BLOOD UREA NITROGEN 7.6 mg/dL (7-18); CALCIUM 8.4 mg/dL (8.5-10.1); CREATININE 0.6 mg/dL (0.55-1.3); TOT PROT 7.5 g/dl (6.4-8.2)
[2019-11-15] MEDS ORDERED: ARTIFICIAL TEARS (POLYVINYL ALCOHOL) OPTH DROPS OU PRN (09:54)
[2019-11-15] MEDS: FOLIC ACID 1 MG TABLET (FP) PO SCH (09:57)
[2019-11-15] MEDS: FERROUS SO4 325 MG TABLET (FP) PO SCH (09:57)
--- NOTE | 2019-11-15 11:16 | PN ---
Progress Note (short form) - Note Progress Note: Surgery: Pt seen earlier this am. Tolerating liquids. Having some throat/neck pain. Vital Signs Period Temp Pulse Resp BP Sys/Panda Pulse Ox Last 24 Hr 97.8 F-98.7 F 62-76 14-20 97-137/58-88 98-100 HERNANDO: 30ml serosangrenous, removed today with the tip intact chapman: 800ml clear/yellow urine GEN: A&0x3, NAD HEENT: [place] J collar in place. In c/d/i Neuro: moving all extremities. 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 Ellison
[2019-11-15] MEDS: LACTATED RINGERS SOLUTION 1,000 ML/1,000 ML INFUS.BAG IV SCH (11:39)
[2019-11-15] MEDS: LIDOCAINE 5% TOPICAL PATCH TP SCH (11:39)
--- NOTE | 2019-11-15 13:57 | CONSULT ---
Consult - text type - Consultation Consultation Note: NEUROSURGERY CONSULTATION (PATIENT SEEN ON Thursday) Batsheva River is a 44 year old female who has a history of neck, lower back, and hip pains of several week duration. She denies any antecedent accident or injury which may be causative. She has been noticing that her legs are stiff and at times they give out beneath her. The patient has been having pain and paresthesias in her Left leg. She has started falling and has sought medical attention. She had her hips evaluated and was told that she should go to the ER due to a several day history of urinary incontinence. Initial suspicion was for possible cauda equina syndrome and MRI Lumbar was obtained. This was largely within normal limits with no clear pathology which might cause these symptoms identified. Due to the clear presence of the worrisome sign of incontinence in a healthy young patient, MRI Cervical and Thoracic were ordered. These were not performed, rather CT of these regions were performed. No clear worrisome pathology was identified and the patient was discharged. Review of the Cervical study raised concern for possible foramen magnum meningioma and the patient was brought back for additional investigation. The patient has numbness and tingling in the hands. The patienthas been dropping things and has problems with fine motor tasks. The patient has Lhermitte's phenomenon and develops electric shock like symptoms with flexi on/extension of the neck. The patient has mild, bilateral Spurling's sign on Physical Examination. The patient walks with a spastic gait and has difficulty arising from a seated position. MRI Cervical demonstrates degenerative loss of lordosis with mild spondylosis with osteophytes, disc bulges and hypertrophic posterior longitudinal ligament and ligamentum flavum which when combined with a congenitally narrow spinal canal results in effacement of the ventral and dorsal CSF spaces and deformation of the Cervical spinal cord. There appear to be an acute soft disc at C56 where the focal kyphosis is worst. The AP spinal canal diameter at C56 = 9.2mm. No foramen magnum meningioma was identified and no substantial pathology was identified on Thoracic MRI. After review of these symptoms and imaging, the patient would likely benefit from decompression and stabilization in the Cervical spine. I described the risks, benefits and alternativesof Cervical 56 Anterior Cervical Decompression and Fusion in great detail. I explained that the risks included, but were not limited to: , coma, paralysis, bleeding, infection, CSF leak possibly requiring spinal drainage or additional surgery, failure to fuse, failure to improve, instrumentation migration/malposition/malfunction and the need for additional surgery. I offered the patient the option to seek another opinion or another surgeon. All questions were answered. Informed consent was obtained. I made a series of illustrations to outline the anatomy, pathology, surgical approachesand potential complications. I explained that her disc was not particularly large and that surgery was not mandatory, however, a careful search for other etiologies of her symptoms has not revealed any clear alternative diagnosis. I explained that she may have a secondary pathology contributing to her symptoms and may not completely improve or require additional treatment for this other potential condition. We also discussed the concern regarding urinary incontinence and proximal muscle weakness raise for potential time sensitive spinal cord compression. The patient asks that we proceed with Cervical surgery as described. - Surgery scheduled for Thursday November 14, 2019
--- NOTE | 2019-11-15 18:13 | PN ---
Progress Note, Physician History of Present Illness: feeling good moving extremeties passing urine - Current Medication List Current Medications: Active Medications Artificial Tears (Artificial Tears) 1 drop OU Q8H PRN PRN Reason: DRY EYES Last Admin: 11/15/19 12:29 Dose: 1 drp Documented by: Diphenhydramine HCl (Benadryl -) 25 mg PO Q6H PRN PRN Reason: FOR ITCHING Last Admin: 11/14/19 15:40 Dose: 25 mg Documented by: Docusate Sodium (Colace -) 100 mg PO TID [facility] Last Admin: 11/15/19 15:55 Dose: 100 mg Documented by: Ferrous Sulfate (Feosol -) 325 mg PO DAILY [facility] Last Admin: 11/15/19 09:57 Dose: 325 mg Documented by: Folic Acid (Folic Acid -) 1 mg PO DAILY [facility] Last Admin: 11/15/19 09:57 Dose: 1 mg Documented by: Heparin Sodium (Porcine) (Heparin -) 5,000 unit SQ TID [facility] Last Admin: 11/15/19 15:53 Dose: 5,000 unit Documented by: Lactated Ringer's (Lactated Ringers Solution) 1,000 ml in 1,000 mls @ 75 mls/hr IV ASDIR [facility] Last Admin: 11/15/19 11:39 Dose: 75 mls/hr Documented by: Lidocaine (Lidoderm Patch -) 1 patch TP DAILY [facility] Last Admin: 11/15/19 11:39 Dose: 1 patch Documented by: Miscellaneous (Lidoderm Patch Removal) 1 each MC DAILY@2200 [facility] Last Admin: 11/14/19 22:21 Dose: Not Given Documented by: Morphine Sulfate (Morphine Sulfate) 4 mg IVPUSH Q4H PRN PRN Reason: PAIN LEVEL 7 - 10 Last Admin: 11/14/19 23:58 Dose: 4 mg Documented by: Ondansetron HCl (Zofran Injection) 4 mg IVPUSH Q6H PRN PRN Reason: NAUSEA Oxycodone HCl (Roxicodone -) 5 mg PO Q4H PRN PRN Reason: PAIN LEVEL 1-5 Last Admin: 11/14/19 22:18 Dose: 5 mg Documented by: Oxycodone HCl (Roxicodone -) 10 mg PO Q4H PRN PRN Reason: PAIN LEVEL 6-10 Last Admin: 11/15/19 17:23 Dose: 10 mg Documented by: - Objective Vital Signs: Vital Signs Temperature 98.4 F 11/15/19 17:28 Pulse Rate 71 11/15/19 17:28 Respiratory Rate 20 11/15/19 17:28 Blood Pressure 100/51 L 11/15/19 17:28 O2 Sat by Pulse Oximetry (%) 99 11/15/19 17:28 Constitutional: Yes: No Distress HENT: Yes: Atraumatic Neck: Yes: Supple Cardiovascular: Yes: Regular Rate and Rhythm Respiratory: Yes: CTA Bilaterally Extremities: Yes: WNL Neurological: Yes: Alert, Oriented Labs: CBC, BMP 11/15/19 06:30 11/15/19 06:30 INR, PTT INR 1.00 (0.83-1.09) 11/14/19 09:15 Problem List - Problems (1) Disc herniation Assessment/Plan: C5-6 DECOMPRESSION AND FUSION Code(s): [id number] - (2) Morbid obesity Code(s): E66.01 - MORBID (SEVERE) OBESITY DUE TO EXCESS CALORIES (3) Back pain Assessment/Plan: ON PAIN MEDS Code(s): M54.9 - DORSALGIA, UNSPECIFIED Qualifiers: Back pain location: low back pain Chronicity: acute Back pain laterality: left Sciatica presence: without sciatica Qualified Code(s): M54.5 - Low back pain (4) Urinary incontinence Code(s): R32 - UNSPECIFIED URINARY INCONTINENCE Qualifiers: Urinary Incontinence type: unspecified incontinence Qualified Code(s): R32 - Unspecified urinary incontinence (5) Asthma Assessment/Plan: STABLE PRN NEBS Code(s): J45.909 - UNSPECIFIED ASTHMA, UNCOMPLICATED Assessment/Plan MEDICINE COVERAGE FOR DR ROMAN
[2019-11-15] MEDS: morphine SULFATE 4 MG/ML VIAL IVPUSH PRN (20:32)
[2019-11-15] MEDS: LIDOCAINE PATCH REMOVAL MC SCH (22:35)
[2019-11-16] MEDS: DOCUSATE SODIUM 100 MG CAPSULE (FP) PO SCH ×3 (05:05→22:00)
[2019-11-16] MEDS: oxyCODONE HCL 5 MG TABLET PO PRN ×3 (05:06→16:38)
[2019-11-16] MEDS: HEPARIN NA (PORCINE) 5,000 UNITS/ML 1ML VIAL SQ SCH ×3 (05:06→22:00)
[2019-11-16] MEDS: LIDOCAINE 5% TOPICAL PATCH TP SCH (09:18)
[2019-11-16] MEDS: FERROUS SO4 325 MG TABLET (FP) PO SCH (09:19)
[2019-11-16] MEDS: FOLIC ACID 1 MG TABLET (FP) PO SCH (09:20)
--- NOTE | 2019-11-16 13:29 | PN ---
Progress Note (short form) - Note Progress Note: Surgery: Pt seen earlier this am. Tolerating a diet. Having some throat/neck pain. OOB and ambulated yesterday. Vital Signs Period Temp Pulse Resp BP Sys/Panda Pulse Ox Last 24 Hr 98.2 F-99.2 F 70-93 18-20 98-117/45-66 94-99 GEN: A&0x3, NAD HEENT: [place] J collar in place. In c/d/i Neuro: moving all extremities. 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 Ellison, plan for discharge in the am
--- NOTE | 2019-11-16 16:00 | PN ---
Progress Note, Physician History of Present Illness: feeling better now earlier had pain in neck - Current Medication List Current Medications: Active Medications Artificial Tears (Artificial Tears) 1 drop OU Q8H PRN PRN Reason: DRY EYES Last Admin: 11/15/19 12:29 Dose: 1 drp Documented by: Diphenhydramine HCl (Benadryl -) 25 mg PO Q6H PRN PRN Reason: FOR ITCHING Last Admin: 11/14/19 15:40 Dose: 25 mg Documented by: Docusate Sodium (Colace -) 100 mg PO TID [facility] Last Admin: 11/16/19 05:05 Dose: 100 mg Documented by: Ferrous Sulfate (Feosol -) 325 mg PO DAILY [facility] Last Admin: 11/16/19 09:19 Dose: 325 mg Documented by: Folic Acid (Folic Acid -) 1 mg PO DAILY [facility] Last Admin: 11/16/19 09:20 Dose: 1 mg Documented by: Heparin Sodium (Porcine) (Heparin -) 5,000 unit SQ TID [facility] Last Admin: 11/16/19 05:06 Dose: 5,000 unit Documented by: Lidocaine (Lidoderm Patch -) 1 patch TP DAILY [facility] Last Admin: 11/16/19 09:18 Dose: 1 patch Documented by: Miscellaneous (Lidoderm Patch Removal) 1 each MC DAILY@2200 [facility] Last Admin: 11/15/19 22:35 Dose: 1 each Documented by: Ondansetron HCl (Zofran Injection) 4 mg IVPUSH Q6H PRN PRN Reason: NAUSEA Oxycodone HCl (Roxicodone -) 5 mg PO Q4H PRN PRN Reason: PAIN LEVEL 1-5 Last Admin: 11/14/19 22:18 Dose: 5 mg Documented by: Oxycodone HCl (Roxicodone -) 10 mg PO Q4H PRN PRN Reason: PAIN LEVEL 6-10 Last Admin: 11/16/19 09:19 Dose: 10 mg Documented by: - Objective Vital Signs: Vital Signs Temperature 98.7 F 11/16/19 15:08 Pulse Rate 88 11/16/19 15:08 Respiratory Rate 18 11/16/19 15:08 Blood Pressure 99/72 11/16/19 15:08 O2 Sat by Pulse Oximetry (%) 94 L 11/16/19 15:08 Constitutional: Yes: No Distress HENT: Yes: Atraumatic Neck: Yes: Other (neck collar on) Cardiovascular: Yes: Regular Rate and Rhythm Respiratory: Yes: CTA Bilaterally Gastrointestinal: Yes: Normal Bowel Sounds Extremities: Yes: WNL Neurological: Yes: Alert, Oriented Labs: CBC, BMP 11/15/19 06:30 11/15/19 06:30 INR, PTT INR 1.00 (0.83-1.09) 11/14/19 09:15 Problem List - Problems (1) Disc herniation Assessment/Plan: C5-6 DECOMPRESSION AND FUSION pod#2 doing well mild pain in throat on po pain meds neck collar on Code(s): LCS7382 - (2) Morbid obesity Code(s): E66.01 - MORBID (SEVERE) OBESITY DUE TO EXCESS CALORIES (3) Back pain Assessment/Plan: ON PAIN MEDS Code(s): M54.9 - DORSALGIA, UNSPECIFIED Qualifiers: Back pain location: low back pain Chronicity: acute Back pain laterality: left Sciatica presence: without sciatica Qualified Code(s): M54.5 - Low back pain (4) Urinary incontinence Assessment/Plan: improving Code(s): R32 - UNSPECIFIED URINARY INCONTINENCE Qualifiers: Urinary Incontinence type: unspecified incontinence Qualified Code(s): R32 - Unspecified urinary incontinence (5) Asthma Assessment/Plan: STABLE PRN NEBS Code(s): J45.909 - UNSPECIFIED ASTHMA, UNCOMPLICATED Assessment/Plan MEDICINE COVERAGE FOR DR ROMAN TODAY
[2019-11-16] MEDS: LACTATED RINGERS SOLUTION 1,000 ML/1,000 ML INFUS.BAG IV SCH (19:12)
[2019-11-16] MEDS: LIDOCAINE PATCH REMOVAL MC SCH (22:00)
[2019-11-17] MEDS: DOCUSATE SODIUM 100 MG CAPSULE (FP) PO SCH ×2 (06:02→14:21)
[2019-11-17] MEDS: HEPARIN NA (PORCINE) 5,000 UNITS/ML 1ML VIAL SQ SCH ×2 (06:02→14:21)
[2019-11-17] MEDS: LIDOCAINE 5% TOPICAL PATCH TP SCH (09:31)
[2019-11-17] MEDS: FERROUS SO4 325 MG TABLET (FP) PO SCH (09:31)
[2019-11-17] MEDS: FOLIC ACID 1 MG TABLET (FP) PO SCH (09:31)
--- NOTE | 2019-11-17 09:35 | PN ---
Progress Note (short form) - Note Progress Note: Surgery: Tolerating a diet. Ambulating and voiding without difficulty. Passing flatus, no BM Vital Signs Period Temp Pulse Resp BP Sys/Panda Pulse Ox Last 24 Hr 98.7 F-100.3 F 79-88 18-20 99-133/59-72 94-97 GEN: A&0x3, NAD HEENT: [place] J collar in place. In c/d/i Neuro: moving all extremities. 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 Ellison, plan for discharge today. Discharge instruction completed and giv en verbally to the patient, prescription for colace and percocoet sent to her pharmacy.
[2019-11-17 14:07] VITALS: BP 123/70; PULSE 89; TEMP 98.6
--- NOTE | 2019-11-22 15:03 | SURG ---
Surgery [employer] Note [employer]: Crow Murcia PA-C Date of Service: 11/14/19 Diagnosis: Cervical spondylotic myelopathy with kyphosis Procedure: 1. Interbody cage (discectomy) 2. C5 Caudal hemicorpectomy with resection of osteophytes and posterior longitudinal ligament (technically challenging) 3. C6 Rostral hemicorpectomy with resection of osteophytes and posterior longitudinal ligament (technically challenging) 4. Anterior Instrumentation C5-6 (technically challenging) 5. Fluroscopy 6. Microdissection 7. C5/6 arthrodesis 8. Local autograft 9. Deformity correction (uatsdin of lordosis) I was present for the entirety of the operative procedure. For further detail, please refer to operative report. Visit type - Case Type Case Type: Scheduled - Emergency Emergency Visit: No - New patient This patient is new to me today: Yes Date on this admission: 11/22/19 - Critical Care Critical Care patient: No
== END 2019-11-17 15:45 | disposition home or self-care (01) | DRG 472 ==
LOC: JER 08:42 → SUPCPDRO 08:42 → JERBED 18:00 → J8W 11-13 13:13
PROVIDERS: ADMIT Internal Medicine; ATTEND Internal Medicine
PROC: 01N10ZZ Release Cervical Nerve, Open Approach (ICD-10-PCS; 2019-11-14)
PROC: 0RB30ZZ Excision of Cervical Vertebral Disc, Open Approach (ICD-10-PCS; 2019-11-14)
PROC: 0PS304Z Reposition Cervical Vertebra with Internal Fixation Device, Open Approach (ICD-10-PCS; 2019-11-14)
PROC: B01BZZZ Fluoroscopy of Spinal Cord (ICD-10-PCS; 2019-11-14)
PROC: 4A1004G Monitoring of Central Nervous Electrical Activity, Intraoperative, Open Approach (ICD-10-PCS; 2019-11-14)
PROC: 0RG10A0 Fusion of Cervical Vertebral Joint with Interbody Fusion Device, Anterior Approach, Anterior Column, Open Approach (ICD-10-PCS; principal; 2019-11-14 09:30)
DX: M50.00 Cervical disc disorder with myelopathy, unspecified cervical region (principal); M47.12 Other spondylosis with myelopathy, cervical region; Z68.41 Body mass index [BMI] 40.0-44.9, adult; M40.292 Other kyphosis, cervical region; E66.01 Morbid (severe) obesity due to excess calories; R32 Unspecified urinary incontinence; J45.909 Unspecified asthma, uncomplicated
CPT/HCPCS: 36415; 71045-TC-FY; 72125-TC; 72141-TC; 72146-TC; 72149-TC; 76000-TC-FY; 80048; 80053; 85025; 85610; 85730; 86850; 86900; 86901; 93005; 93010; 94760; 97116-GP; 97161-GP; 99285-25; J1644; U0003

== ENCOUNTER 2021-07-17 04:31 | Day surgery (SDC) | payer BC ==
[2021-07-12 14:11] VITALS: BMI 31.2
[~2021-07-17 04:31] MED LIST: CEFAZOLIN 2 GM in DEXTROSE 5%-WATER - 100 ML IVPB ONE
[2021-07-17] MEDS ORDERED: CEFAZOLIN 2 GM in DEXTROSE 5%-WATER - 100 ML IVPB ONE (08:15)
[2021-07-17] MEDS ORDERED: PROPOFOL 20 ML ONE (09:41)
[2021-07-17] MEDS ORDERED: FENTANYL CITRATE/PF 50 MCG/ML VIAL ONE ×4 (09:41→09:45)
[2021-07-17] MEDS ORDERED: MIDAZOLAM HCL 2 MG/2 ML SINGLE DOSE VIAL ONE (09:41)
[2021-07-17] MEDS ORDERED: BUPIVACAINE HCL/PF 0.5% (5MG/ML) 10 ML VIAL ONE (09:45)
[2021-07-17] MEDS ORDERED: ROCURONIUM BROMIDE 50 MG/5 ML SYRINGE ONE ×2 (09:45→10:54)
[2021-07-17] MEDS ORDERED: LIDOCAINE 1%/EPI 1:100000 (20 ML MULTI DOSE VIAL) ONE (09:45)
[2021-07-17] MEDS ORDERED: ceFAZolin SODIUM 1 GM VIAL IVPB ONE (10:16)
[2021-07-17] MEDS ORDERED: BUPIVACAINE HCL/PF 0.5% (5 MG/ML) 30 ML VIAL IJ ONE (10:32)
[2021-07-17] MEDS ORDERED: LIDOCAINE 1%/EPI 1:100000 (20 ML MULTI DOSE VIAL) IJ ONE (10:32)
[2021-07-17] MEDS ORDERED: HYDROmorphone HCl 2 MG/ML VIAL ONE (10:42)
[2021-07-17] MEDS ORDERED: KETAMINE HCL 200 MG/20 ML VIAL ONE (11:06)
[2021-07-17] MEDS ORDERED: NEOSTIGMINE METHYLSULFATE 0.5 MG/ML - 10 ML MDV ONE (12:01)
[2021-07-17] MEDS ORDERED: MEPERIDINE HCL 25 MG/ML VIAL ONE (12:34)
[2021-07-17] MEDS ORDERED: PROMETHAZINE HCL 25 MG/1 ML VIAL IVPUSH PRN (12:43)
[2021-07-17] MEDS ORDERED: ONDANSETRON 4 MG/2 ML VIAL IVPUSH PRN ×2 (12:43→12:57)
[2021-07-17] MEDS ORDERED: MEPERIDINE HCL 25 MG/ML VIAL IVPUSH PRN (12:44)
[2021-07-17] MEDS ORDERED: LACTATED RINGERS SOLUTION 1,000 ML IV SCH (12:45)
[2021-07-17] MEDS ORDERED: ACETAMINOPHEN 325 MG TABLET (FP) PO PRN (12:57)
[2021-07-17] MEDS ORDERED: oxyCODONE HCL 5 MG TABLET PO PRN (12:57)
[2021-07-17] MEDS ORDERED: DOCUSATE SODIUM 100 MG CAPSULE (FP) PO PRN (12:57)
[2021-07-17] MEDS ORDERED: BISACODYL 5 MG TABLET.DR (FP) PO PRN (12:57)
[2021-07-17] MEDS ORDERED: SIMETHICONE 80 MG TAB.CHEW (FP) PO PRN (12:57)
[2021-07-17] MEDS: ACETAMINOPHEN 1000 MG/100 ML BAG IVPB SCH ×2 (14:01→18:08)
[2021-07-17 15:12] VITALS: TEMP 98.1
[2021-07-17] MEDS ORDERED: DEXTROSE 5%-WATER - 50 ML IVPB ONE (16:19)
[2021-07-17] MEDS ORDERED: ceFAZolin SODIUM 1 GM VIAL ONE (16:19)
[2021-07-17] MEDS: CEFAZOLIN 1 GM in DEXTROSE 5%-WATER - 50 ML IVPB SCH ×2 (16:35→18:08)
[2021-07-17 17:32] VITALS: BP 122/64; PULSE 80
[2021-07-17] MEDS ORDERED: KETOROLAC TROMETHAMINE 30 MG/1 ML VIAL IVPUSH SCH (18:00)
[2021-07-17 20:14] LABS: HEMATOCRIT 30.8 % (32.4-45.2); HEMOGLOBIN 10.1 GM/dL (10.7-15.3); MCH 26.8 pg (25.7-33.7); MCHC 32.6 g/dl (32.0-36.0); MEAN CELL VOLUME 82.2 fl (80-96); MEAN PLT VOLUME 7.7 fl (7.5-11.1); PLATELET COUNT 325 10^3/uL (134-434); RBC 3.75 M/mm3 (3.60-5.2); RDW 17.8 % (11.6-15.6); WHITE BLOOD COUNT 7.8 K/mm3 (4.0-10.0)
== END 2021-07-17 20:55 | disposition home or self-care (01) ==
LOC: JASUSAT 04:31 → MERGE 09:30 → J8W 14:59 → JASUSAT 20:55
PROVIDERS: ATTEND Specialist
PROC: 0UT7FZZ Resection of Bilateral Fallopian Tubes, Via Natural or Artificial Opening With Percutaneous Endoscopic Assistance (ICD-10-PCS; 2021-07-17)
PROC: 8E0W4CZ Robotic Assisted Procedure of Trunk Region, Percutaneous Endoscopic Approach (ICD-10-PCS; 2021-07-17)
PROC: 0UT9FZZ Resection of Uterus, Via Natural or Artificial Opening With Percutaneous Endoscopic Assistance (ICD-10-PCS; 2021-07-17)
PROC: 0UQF7ZZ Repair Cul-de-sac, Via Natural or Artificial Opening (ICD-10-PCS; principal; 2021-07-17 09:30)
DX: N92.0 Excessive and frequent menstruation with regular cycle (principal); N81.5 Vaginal enterocele
CPT/HCPCS: 57268; 58552; S2900; 36415; 81025; 85027; 86850; 86900; 86901; 88304-TC; 88307-TC; 94760